=== PATIENT | female | born 1995 | race Caucasian/White ===

== ENCOUNTER 2022-03-09 17:11 | Emergency (ER) | payer MEDICAID ==
[~2022-03-09] VITALS: Ht 162.6 cm; Wt 71.2 kg
[2022-03-09 17:26] VITALS: BP 120/80
--- NOTE | 2022-03-09 17:49 | NUR ---
JENNYFER STROUD AT BEDSIDE
[2022-03-09] MEDS ORDERED: cefTRIAXone 500 MG in LIDOCAINE MPF 1% 1 ML IM ONE (17:55)
--- NOTE | 2022-03-09 17:55 | NUR ---
26 Y/O FEMALE BIB SELF PRSENTS TO ED FOR YELLOWISH VAGINAL DISCHARGE X1 MONTH. DENIES ANY PAIN, BLEEDING, ITCHING. STATES THAT SHE HAS MULTIPLE SEXUAL PARTNERS NKA PMH: DENIES
[2022-03-09] MEDS ORDERED: cefTRIAXone 500 MG VIAL ONE (17:59)
[2022-03-09] MEDS ORDERED: LIDOCAINE MPF 1% 5 ML ONE (18:00)
[2022-03-09] MEDS ORDERED: ONDA-188 PO (18:09)
[2022-03-09] MEDS ORDERED: DOXY-565 PO (18:09)
--- NOTE | 2022-03-09 18:21 | NUR ---
Patient discharged with v/s stable. Written and verbal after care instructions given and explained. Patient alert, oriented and verbalized understanding of instructions. Ambulatory with steady gait. All questions addressed prior to discharge. ID band removed. Patient advised to follow up with PMD. Rx of DOXYCYCLINE, ZOFRAN ODT given. Patient educated on indication of medication including possible reaction and side effects. Opportunity to ask questions provided and answered.
== END 2022-03-09 18:21 | disposition home or self-care (01) ==
LOC: MED 17:11
DX: R10.2 Pelvic and perineal pain (principal)
CPT/HCPCS: 81002; 81025; 87491; 96372; 99283; J0696; J2001

== ENCOUNTER 2022-03-25 13:50 | Emergency (ER) | payer MEDICAID ==
[~2022-03-25] VITALS: Ht 165.1 cm; Wt 70.8 kg
[~2022-03-25 13:50] MED LIST: DOXY-565 PO; ONDA-188 PO
[2022-03-25 14:06] VITALS: BP 113/67
--- NOTE | 2022-03-25 14:10 | NUR ---
PT AMB TO BED 3.
--- NOTE | 2022-03-25 14:21 | NUR ---
C/O SMALL MASS AT 10 OCLOCK OF AREOLA BORDER ON RIGHT BREAST X 3 DAYS, REDNESS PRESENT, DENIES DISCHARGE. PMH: DENIES
[2022-03-25] MEDS ORDERED: CEPH-588 PO (15:08)
[2022-03-25] MEDS ORDERED: SULF-59 PO (15:08)
[2022-03-25] MEDS ORDERED: IBUP-1842 PO (15:08)
[2022-03-25 15:26] VITALS: BP 113/67
--- NOTE | 2022-03-25 15:26 | NUR ---
Patient discharged with v/s stable. Written and verbal after care instructions given and explained. Patient alert, oriented and verbalized understanding of instructions. Ambulatory with steady gait. All questions addressed prior to discharge. ID band removed. Patient advised to follow up with PMD. Rx of KEFLEX, MOTRIN, BACTRIM given. Patient educated on indication of medication including possible reaction and side effects. Opportunity to ask questions provided and answered.
== END 2022-03-25 15:26 | disposition home or self-care (01) ==
LOC: MED 13:50
DX: N61.0 Mastitis without abscess (principal); F17.210 Nicotine dependence, cigarettes, uncomplicated; F12.90 Cannabis use, unspecified, uncomplicated; Z79.899 Other long term (current) drug therapy
CPT/HCPCS: 99284